=== PATIENT | male | born 1965 | race African-American/Black ===

== ENCOUNTER 2017-10-31 22:20 | Emergency (ER) | payer SELFPAY | END 2017-11-01 00:59 | disposition home or self-care (01) | LOC: ER 22:20 | DX: M54.5 Low back pain (principal); V43.52XA Car driver injured in collision with other type car in traffic accident, initial encounter; Y93.I9 Activity, other involving external motion; Y92.410 Unspecified street and highway as the place of occurrence of the external cause; Y99.8 Other external cause status | CPT/HCPCS: 72128; 72131; 99284-25 ==